=== PATIENT | male | born 1975 | race American Indian/Alaskan Native ===

== ENCOUNTER 2017-10-04 20:39 | Emergency (ER) | payer OTHER ==
[2017-10-04 21:01] VITALS: BP 148/82
[2017-10-05] MEDS ORDERED: TYLENOL PO ONE (01:55)
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
== END 2017-10-05 03:00 | disposition home or self-care (01) ==
LOC: ED 20:39
DX: M54.5 Low back pain (principal); V49.49XA Driver injured in collision with other motor vehicles in traffic accident, initial encounter; Y93.89 Activity, other specified; Y92.89 Other specified places as the place of occurrence of the external cause; Y99.8 Other external cause status
CPT/HCPCS: 72100; 99283